=== PATIENT | male | born 1990 | race Caucasian/White ===

== ENCOUNTER → 2019-03-25 | Outpatient (CLI) | payer BC ==
--- NOTE | 2019-03-25 08:40 | MR ---
EXAMINATION TYPE: MR shoulder RT wo con DATE OF EXAM: 03/25/2019 8:25 AM COMPARISON: NONE HISTORY: Rt shoulder pain x 1 year, limited ROM, no trauma TECHNIQUE: Multiplanar, multisequence imaging of the right shoulder is performed without contrast. FINDINGS: There is no evidence of an os acromiale. There is mild inflammatory change in the right AC joint. The acromion is neutral. There is some minimal intrasubstance signal within the posterior fibers of the infraspinatus muscle. No definite tear is seen. There is minimal pseudocystic change in the humeral head, an indirect sign of impingement. The cartilaginous glenoid labrum appears intact. The biceps tendon is normally situated within the bi ceps tendon groove and inserts normally upon the biceps anchor. IMPRESSION: 1. MILD TO MODERATE INFLAMMATORY CHANGES IN THE RIGHT AC JOINT. 2. MINIMAL INTRASUBSTANCE SIGNAL WITHIN THE POSTERIOR FIBERS OF THE INFRASPINATUS TENDON OF QUESTIONA BLE ETIOLOGY AND SIGNIFICANCE.
== END | disposition home or self-care (01) ==
LOC: RADMRIMAIN 07:44
PROVIDERS: ATTEND Nurse Practitioner Adult Health
DX: M75.101 Unspecified rotator cuff tear or rupture of right shoulder, not specified as traumatic (principal)

== ENCOUNTER → 2019-08-23 | Outpatient (CLI) | payer BC ==
--- NOTE | 2019-08-23 16:01 | US ---
EXAMINATION TYPE: US scrotum with doppler. Grayscale and color Doppler Duplex imaging performed of t he scrotum. DATE OF EXAM: 08/23/2019 COMPARISON: NONE CLINICAL HISTORY: N50.819 Testicular pain, unspecified. Right testi pain and lump EXAM MEASUREMENTS: TESTICLES: Right Testicle: 4.9 x 2.1 x 3.2 cm Left Testicle: 4.3 x 2.4 x 2.9 cm EPIDIDYMIS HEAD: Right Epididymis: .7 x .8 x 1.0 cm Left Epididymis: .9 x 1.2 x .9 cm Doppler performed to assess for testicular vascularity; good bilateral color flow and waveforms are s een. There is no evidence of testicular torsion. Presence of hydroceles: No Presence of varicoceles: No IMPRESSION: No sonographic correlate for the patient's right-sided palpable abnormality. No identifie d intratesticular or extratesticular suspicious mass.
== END | disposition home or self-care (01) ==
LOC: RADUSWWP 15:13
PROVIDERS: ATTEND Family Medicine
DX: N50.811 Right testicular pain (principal)
CPT/HCPCS: 76870; 93975